=== PATIENT | female | born 1990 | race Caucasian/White ===

== ENCOUNTER → 2016-04-25 | Outpatient (CLI) | payer OTHER ==
--- NOTE | 2016-04-26 04:12 | REP ---
Clinical: Anatomical evaluation. Comparison: Prior examination report dated 02/24/2016 . Findings: Examination demonstrates a single live intrauterine in variable presentation. motion is identified by technologist. Placenta is noted posteriorly and grade one without evidence for placenta previa or abruption. Amniotic fluid volume is normal. Cervix measures 4.3 cm in length and appears closed. No evidence for nuchal cord. Gestational age by LMP 29 weeks 4 days with DRE 07/07/2016 . Gestational age by current measurements 28 weeks 6 days with DRE 07/12/2016 . FHR equals 136 beats per minute. Estimated weight 1394 grams ( 38th percentile). Anatomical assessment demonstrates normal structures including cranium, choroid plexus, cavum, cerebellum/posterior fossa, facial features, lungs, four-chamber heart/ventricular outflow tracts, diaphragm, stomach, cord insertion/three-vessel cord, bladder, spine, and extremities. Kidneys demonstrate mild hydronephrosis (left kidney renal pelvis measures 3.9 mm diameter and right kidney renal pelvis measures 3.0 mm diameter). The bladder is unremarkable. Amniotic fluid volume is normal. Impression: Single live intrauterine in variable presentation demonstrating appropriate interval growth. Mild renal hydronephrosis is suggested and may warrant follow-up examination. Remainder of the anatomical assessment appears complete and normal. Signed by Gray Patterson MD 04/26/2016 04:03 A
== END ==
LOC: M SMT 14:18
PROVIDERS: ATTEND Specialist
DX: Z34.83 Encounter for supervision of other normal pregnancy, third trimester (principal)

== ENCOUNTER → 2016-04-26 | Outpatient (CLI) | payer OTHER ==
[2016-04-26 18:37] LABS: MEAN CORPUSCULAR HEMOGLOBIN 29.2 pg (27.0-33.0); MEAN CORPUSCULAR HGB CONC 33.4 g/dl (32.0-36.5); MEAN CORPUSCULAR VOLUME 87.4 fl (80.0-96.0); RED CELL DISTRIBUTION WIDTH 12.2 % (11.5-14.5); WHITE BLOOD COUNT 10.5 K/mm3 (4.0-10.0)
== END ==
LOC: M SMT 12:54
PROVIDERS: ATTEND Specialist
DX: Z34.83 Encounter for supervision of other normal pregnancy, third trimester (principal)

== ENCOUNTER → 2016-06-11 | Outpatient (REF) | payer OTHER | LOC: M LAB REF 06-01 13:16 | PROVIDERS: ATTEND Specialist | DX: Z34.83 Encounter for supervision of other normal pregnancy, third trimester (principal) ==

== ENCOUNTER 2016-07-09 13:34 | Inpatient (IN) | payer OTHER ==
[~2016-07-09] VITALS: Ht 170.2 cm; Wt 92.0 kg
[2016-07-09] VITALS (8 sets, daily range): BP systolic 81–116; BP diastolic 43–71
[2016-07-09] MEDS ORDERED: LACTATED RINGER'S 1000 ML IV STA (15:03)
[2016-07-09] MEDS ORDERED: PENICILLIN G POTASSIUM IV 5 MU in D5W MINI-BAG PLUS 100 ML IV STA (15:03)
[2016-07-09 15:53] LABS: MEAN CORPUSCULAR HEMOGLOBIN 28.4 pg (27.0-33.0); MEAN CORPUSCULAR HGB CONC 33.9 g/dl (32.0-36.5); RED CELL DISTRIBUTION WIDTH 13.4 % (11.5-14.5)
[2016-07-09] MEDS: miSOPROStol 50 MCG 1/2 TAB (S0191) PO SCH ×3 (16:03→23:58)
--- NOTE | 2016-07-09 19:31 | HPE ---
DATE OF ADMISSION: 07/09/2016 A 26-year-old 1, estimated date of delivery 07/07/2016, here at 40 weeks 2 days with reports of loss of fluids since 0800. Denies bleeding or regular contractions. Fetus is active. Last normal menstrual period 10/01/2015 for estimated date of delivery (DRE) of 07/07/2016. Sonogram at 7 weeks confirmed the date. Anatomy scan within normal limits except mild renal hydronephrosis. Third trimester transfer to [facility] and appropriate care. ALLERGIES: No known drug allergies. MEDICAL/SURGICAL: Non-contributory. FAMILY: Diabetes and heart disease. SOCIAL: . Father of the baby is present and supportive. Denies tobacco, alcohol, drugs, or abuse. OBJECTIVE: Unknown pre- weight. Weight upon admission 217. O positive, antibody negative, PAP normal 2015. Rubella immune. Venereal disease research laboratory ([facility]), hepatitis B, hepatitis C, HIV, gonorrhea, Chlamydia all negative. Quad screen was in normal limits. One hour glucose 85. Group B Streptococcus is positive. Vital signs are stable. She is afebrile and normotensive, no apparent distress. Heart rate is regular. Respirations are easy. Abdomen is soft, gravid, longitudinal lie. Rare contractions. heart 120, moderate variability with accelerations. Sterile spec exam: Negative pooling. Negative Valsalva, positive Nitrazine, and positive Fern. Sterile vaginal examination: 1 cm, 50% effaced -3 station. ASSESSMENT: Primipara (primip) at term. Premature rupture of membranes, category 1 tracing. PLAN: Admit per consult, Dr. Ontiveros. Group B Streptococcus prophylaxis. Misoprostol cervical ripening. Patient is considering an epidural. Anticipate normal spontaneous vaginal . MTDD
[2016-07-09] MEDS: PENICILLIN G POTASSIUM IV 2.5 MU in D5W 100 ML IV SCH ×2 (19:53→23:58)
[2016-07-10] VITALS (36 sets, daily range): BP systolic 88–135; BP diastolic 50–79
[2016-07-10] MEDS: PENICILLIN G POTASSIUM IV 2.5 MU in D5W 100 ML IV SCH ×4 (04:14→16:18)
[2016-07-10] MEDS ORDERED: PROMETHAZINE INJ 25 MG/ML VIAL (J2550) IV ONE ×2 (04:30→09:45)
[2016-07-10] MEDS ORDERED: BUTORPHANOL 2 MG/ML INJ (J0595) IV ONE ×2 (04:30→09:45)
[2016-07-10] MEDS: miSOPROStol 50 MCG 1/2 TAB (S0191) PO SCH (04:33)
[2016-07-10] MEDS ORDERED: miSOPROStol 100 MCG TAB (S0191) As Ordered ONE (08:13)
[2016-07-10] MEDS ORDERED: miSOPROStol 100 MCG TAB (S0191) PO ONE (08:15)
[2016-07-10] MEDS: LR 1,000 ML IV SCH ×2 (08:15→13:27)
[2016-07-10] MEDS ORDERED: FENTANYL 2MCG/ML ROPIVACAINE 0.2% IN 0.9% NACL 200ML IVBAG As Ordered ONE (11:56)
[2016-07-10] MEDS ORDERED: LR 1,000 ML IV SCH (12:09)
[2016-07-10] MEDS ORDERED: OXYTOCIN DRIP 30 UNITS in APPROPRIATE DILUENT 1 EA IV SCH ×2 (12:15→18:07)
[2016-07-10] MEDS ORDERED: NALOXONE INJ 0.4 MG/1 ML VIAL (J2310) IV PRN (13:45)
[2016-07-10] MEDS ORDERED: LACTATED RINGER'S 1000 ML IV PRN (13:45)
[2016-07-10] MEDS ORDERED: FENTANYL/ROPIVACAINE/NACL BAG 200 ML EPIDURAL SCH (13:45)
[2016-07-10] MEDS ORDERED: REFRIGERATOR IV KEYS XX PRN (13:45)
[2016-07-10] MEDS ORDERED: EPIDURAL COMMENT XX SCH (13:45)
[2016-07-10] MEDS ORDERED: ePHEDrine SULFATE 25 MG/5 ML(5MG/ML) SYRINGE IV PRN (13:45)
[2016-07-10] MEDS ORDERED: EPIDURAL/PCA KEYS XX PRN (13:45)
[2016-07-10] MEDS ORDERED: ONDANSETRON 4MG/2ML VIAL (J2405) IV PRN (13:45)
[2016-07-10] MEDS ORDERED: diphenhydrAMINE INJ 50MG/ML VIAL (J1200) IV PRN (13:45)
[2016-07-10] MEDS ORDERED: DIBUCAINE 1% OINTMENT 30GM TOP PRN (18:15)
[2016-07-10] MEDS ORDERED: RHOGAM 300 MCG (1500 IU) INJ (J2790) IM SCH (18:15)
[2016-07-10] MEDS ORDERED: MEASLES,MUMPS,RUBELLA VACCINE INJ (MMR-II) (90707) SC SCH (18:15)
[2016-07-10] MEDS ORDERED: METHYLERGONOVINE MALEATE 0.2 MG TAB PO PRN (18:15)
[2016-07-10 18:16] LABS: CORD GAS ABE A -7.2; CORD GAS HCO3 A 22.8 MEQ/L; CORD GAS O2 SAT A 45.5 %; CORD GAS PCO2 A 64.5 mmHg; CORD GAS PH A 7.167 UNITS; CORD GAS PO2 A 24.2 mmHg; CORD GAS SBC A 17.4 MEQ/L; CORD GAS TCO2 A 24.8 MEQ/L
[2016-07-10 18:21] LABS: CORD GAS ABE V -1.8; CORD GAS O2 SAT V 25.1 %; CORD GAS PCO2 V 68.4 mmHg; CORD GAS PH V 7.23 UNITS; CORD GAS PO2 V 13.8 mmHg; CORD GAS TCO2 V 30.1 MEQ/L
[2016-07-10] MEDS: ACETAMINOPHEN 500 MG TAB PO PRN (22:19)
[2016-07-10] MEDS: IBUPROFEN 800 MG TAB PO PRN (22:19)
[2016-07-11] MEDS: IBUPROFEN 800 MG TAB PO PRN ×2 (06:03→13:39)
[2016-07-11] MEDS: ACETAMINOPHEN 500 MG TAB PO PRN ×3 (06:03→19:36)
[2016-07-11 06:04] VITALS: BP 122/77
[2016-07-11] MEDS: DOCUSATE SODIUM 100 MG CAP PO PRN ×2 (07:40→19:36)
[2016-07-11] MEDS: PRENATAL VITAMIN TAB PO SCH (07:40)
[2016-07-11 18:00] VITALS: BP 121/56
--- NOTE | 2016-07-11 18:35 | DN ---
DATE: 07/10/2016 Megan is a 26-year-old 1, para 1-0-0-1 now who was admitted to labor and delivery with premature rupture of membranes. Misoprostol and IV Pitocin was utilized and labor did ensue. She did utilize an epidural for her labor coping. She progressed to full dilation at 16:34. She pushed to a normal spontaneous vaginal delivery of a live male infant in OA position with restitution to LOT position at 17:20. There was no nuchal cord. Shoulders delivered spontaneously and the corpus immediately followed. Jordan male was placed on maternal abdomen crying and active. His mouth and nares were bulb suctioned. The cord was clamped times two and cut by the father of baby. Cord gases and cord blood was obtained. A spontaneous expulsion of an intact placenta with three-vessel cord by Short mechanism was at 17:27. Uterine hemostasis achieved with IV Pitocin rapid infusion and uterine fundal massage. Estimated blood loss 400 mL. Perineum and vagina were inspected noted to have a second-degree laceration. The laceration was repaired with 3-0 Rapide in the usual fashion. Jordan male weighed 3,790 grams, 8 pounds 6 ounces, 9 and 9. The family have named him will be in the mom is going to breastfeed her son. At the close of delivery lap counts, instrument counts and needle counts were correct and verified.
[2016-07-11 20:33] VITALS: BP 121/56
[2016-07-12] MEDS: ACETAMINOPHEN 500 MG TAB PO PRN (02:30)
[2016-07-12] MEDS: IBUPROFEN 800 MG TAB PO PRN (02:30)
[2016-07-12 05:57] VITALS: BP 106/58
[2016-07-12] MEDS: PRENATAL VITAMIN TAB PO SCH (08:08)
[2016-07-12] MEDS ORDERED: IBUP-1114 PO (08:20)
[2016-07-12] MEDS ORDERED: ACET50TA PO (08:20)
[2016-07-12] MEDS ORDERED: COLA100C3 PO (08:20)
[2016-07-12] MEDS ORDERED: PRENTAB9 PO (08:22)
== END 2016-07-12 12:39 | disposition home or self-care (01) | DRG 775 ==
LOC: M LDI 13:34 → M OBS 07-10 20:56
PROVIDERS: ADMIT Advanced Practice Midwife; ATTEND Advanced Practice Midwife
PROC: 10E0XZZ Delivery of Products of Conception, External Approach (ICD-10-PCS; principal; 2016-07-10)
PROC: 0KQM0ZZ Repair Perineum Muscle, Open Approach (ICD-10-PCS; 2016-07-10)
DX: O48.0 Post-term pregnancy (principal); Z37.0 Single live birth; Z3A.40 40 weeks gestation of pregnancy; O99.820 Streptococcus B carrier state complicating pregnancy; O42.02 Full-term premature rupture of membranes, onset of labor within 24 hours of rupture; Z83.3 Family history of diabetes mellitus; O70.1 Second degree perineal laceration during delivery

== ENCOUNTER 2017-01-14 19:35 | Emergency (ER) | payer OTHER ==
[~2017-01-14] VITALS: Ht 170.2 cm; Wt 90.9 kg
[~2017-01-14 19:35] MED LIST: ACET50TA PO; COLA100C5 PO; IBUP-1114 PO; PRENTAB9 PO
[2017-01-14] MEDS: BACTRIM 160MG/800MG DS TAB PO ONE (22:18)
[2017-01-14] MEDS: IBUPROFEN 800 MG TAB PO ONE (22:18)
[2017-01-14] MEDS ORDERED: BACT800T5 PO (22:24)
[2017-01-14] MEDS ORDERED: IBUP-1022 PO (22:24)
[2017-01-14 22:29] VITALS: BP 122/56
== END 2017-01-14 22:30 | disposition home or self-care (01) ==
LOC: M ED 19:35
DX: L02.214 Cutaneous abscess of groin (principal); F17.210 Nicotine dependence, cigarettes, uncomplicated